=== PATIENT | female | born 1955 | race Caucasian/White ===

== ENCOUNTER 2016-09-26 16:06 | Emergency (ER) | payer OTHER ==
[~2016-09-26] VITALS: Ht 152.4 cm; Wt 71.7 kg
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
[2016-09-26] MEDS ORDERED: LISINOPRIL10 M1 PO (16:57)
[2016-09-26] MEDS ORDERED: LEVOTHYROXINE75 MCG PO (16:57)
[2016-09-26] MEDS ORDERED: CALCIUM PLUS M1 EAC1 PO (16:59)
[2016-09-26] MEDS ORDERED: PRESERVISION A1 EAC1 PO (17:00)
[2016-09-26] MEDS ORDERED: VITAMIN D2000 UNI1 PO (17:00)
[2016-09-26] MEDS ORDERED: VITAMIN B-121000 MC3 PO (17:00)
--- NOTE | 2016-09-26 17:45 | CT SCAN REPORT ---
EXAMINATION: CT HEAD WITHOUT CONTRAST CLINICAL INFORMATION: Headache status-post fall; question intracranial hemorrhage. COMPARISON: None. TECHNIQUE: Contiguous axial imaging was performed from the skull base to vertex without intravenous administration of contrast. Additional coronal reformatted images are submitted. DLP: 600.71 mGy-cm FINDINGS: There is no evidence of acute intracranial hemorrhage or territorial infarction. No abnormal mass effect or midline shift is seen. Maynard to white matter differentiation is well preserved. No extra-axial fluid collections are identified. The ventricles are normal in size. There is no abnormal attenuation within the brain parenchyma. The osseous structures and soft tissues are normal. There is a right frontal, hematoma. The mastoid air cells and visualized portions of the paranasal sinuses are well aerated. IMPRESSION: 1. No acute intracranial pathology. 1. There is a right frontal scalp hematoma, without underlying fracture.
--- NOTE | 2016-09-26 18:00 | RADIOLOGY REPORT ---
EXAMINATION: XR SHOULDER, RIGHT XR KNEE, RIGHT CLINICAL INFORMATION: A 61-year-old female, fell down 8 steps, complaining of right shoulder and right knee pain. COMPARISON: None. TECHNIQUE: Four views of the right shoulder and 5 views including crosstable lateral view of the right knee were obtained. FINDINGS: RIGHT SHOULDER: The bony alignment is intact. The cortices are intact. Mild degenerative changes are noted at the right glenohumeral and acromioclavicular joints. There is no radiographic evidence of acute fracture or dislocation present. Soft tissues are unremarkable. RIGHT KNEE: The bony alignment is intact. The cortices are intact. Chondrocalcinosis is noted. Mild tricompartmental degenerative osteoarthrosis is noted. There is no joint effusion or lipo-hemarthrosis present. Nonspecific mild periosteal reaction is noted at upper posterior, medial diaphysis of the visualized included part of the tibia, of uncertain etiology. IMPRESSION: 1. No radiographic evidence of any acute fracture or dislocation is seen at the right shoulder and right knee. 2. Incidental note is made of presence of mild osteoarthrosis involving the right acromioclavicular, glenohumeral joints and mild tricompartmental degenerative osteoarthrosis of the right knee with underlying chondrocalcinosis. 3. Nonspecific thick periosteal reaction along the posteromedial aspect of the visualized included part of the right tibial diaphysis, not optimally evaluated, of uncertain etiology.
[2016-09-26 18:11] VITALS: BP 132/79
== END 2016-09-26 18:27 ==
LOC: ERH 16:06
DX: S09.90XA Unspecified injury of head, initial encounter (principal); S80.01XA Contusion of right knee, initial encounter; S40.011A Contusion of right shoulder, initial encounter; W10.9XXA Fall (on) (from) unspecified stairs and steps, initial encounter
CPT/HCPCS: 73030-RT; 73562-RT